=== PATIENT | female | born 1980 | race Caucasian/White ===

== ENCOUNTER 2023-05-27 09:33 | Emergency (ER) | payer MEDICAID ==
[~2023-05-27] VITALS: Ht 157.5 cm; Wt 63.6 kg
[2023-05-27 09:38] VITALS: TEMP 98.4
[2023-05-27 09:39] VITALS: BP 94/73; PULSE 80; RESP 16
== END 2023-05-27 11:34 | disposition left against medical advice (07) ==
LOC: EMS 09:36
DX: M25.572 Pain in left ankle and joints of left foot (principal); Z53.21 Procedure and treatment not carried out due to patient leaving prior to being seen by health care provider
CPT/HCPCS: 99281; 73610-TC; Z7502